=== PATIENT | male | born 1970 | race Caucasian/White ===

== ENCOUNTER → 2025-05-12 | Outpatient (CLI) | payer MEDICARE ==
[~2025-05-12] MED LIST: ALLEGRA180 MG PO; CIPROFLOXACIN500 MG PO; CLINDAMYCIN HC300 MG PO; FLAGYL500 MG PO; LOMOTIL 0.025 M1 TA1 PO; LOTREL 10 MG-401 CAP PO; LUNESTA3 MG PO; LYRICA100 MG PO; MAG-OX 400400 MG PO; MYCELEX PO; OXY IR5 MG PO; PAMELOR25 MG PO; PREDNISONE5 MG PO; PROTONIX40 MG PO; PYRIDIUM200 MG PO; VALIUM10 MG PO; ZITHROMAX500 MG PO
[2025-05-12 14:15] LABS: BASO # 0.1 10*3/uL (0.0-0.1); BASO % 1.0 % (0.0-1.0); EOS # 0.2 10*3/uL (0.0-0.4); EOS % 1.3 % (1.0-4.0); MEAN CELL VOLUME 86.7 fl (80.0-94.0); MEAN CORPUSCULAR HGB 30.0 pg (27.0-31.0); MEAN PLATELET VOLUME 10.5 fl (9.6-12.3); MONO # 0.7 10*3/uL (0.1-1.0); MONO % 5.8 % (3.0-9.0); NEUT # 8.7 10*3/uL (2.3-7.9); NEUT % 74.6 % (47.0-73.0); NUCLEATED RED BLOOD CELL 0.0 % (0.0-0.0); NUCLEATED RED BLOOD CELL 0.0 10*3/uL (0.0-0.0); PLATELET COUNT AUTOMATED 294 10*3/uL (130-400); RED CELL DISTRI WIDTH 13.4 % (0-14.5)
[2025-05-12 14:54] LABS: BUN 7 mg/dl (9-23); FREE T4 1.18 ng/dl (0.89-1.76); SGPT/ALT 8 U/L (5-49)
[2025-05-13 16:08] LABS: NUCLEOLAR PATTERN 1:640 (.)
== END | disposition home or self-care (01) ==
LOC: LAB 13:44
PROVIDERS: ATTEND Nurse Practitioner Family
DX: I10 Essential (primary) hypertension (principal); E11.9 Type 2 diabetes mellitus without complications; F31.81 Bipolar II disorder; E78.2 Mixed hyperlipidemia; L65.9 Nonscarring hair loss, unspecified